=== PATIENT | female | born 1965 | race Caucasian/White ===

== ENCOUNTER 2022-07-05 09:32 | Emergency (ER) | payer BC ==
[~2022-07-05] VITALS: Ht 162.6 cm; Wt 59.1 kg
[2022-07-05 09:37] VITALS: BP 151/85
[2022-07-05] MEDS ORDERED: LIDOcaine 1% W/epiNEPHrine 1:100,000 20ml vial SQ ONE (09:40)
[2022-07-05] MEDS ORDERED: oxymetazoline 15 ML nasal spray NS ONE (09:40)
--- NOTE | 2022-07-05 10:03 | NUR ---
Dr. Odonnell suctioned patient's nose and packed it. Afrin nasal spray was administered by Dr. Odonnell to the patient's nose. Patient was given water and a kidney basin, instructed to rinse and gargle.
== END 2022-07-05 11:01 | disposition home or self-care (01) ==
LOC: ER 09:33
DX: R04.0 Epistaxis (principal)
CPT/HCPCS: 30901; 99283; 99284